=== PATIENT | male | born 1970 | race Caucasian/White ===

== ENCOUNTER 2017-07-12 18:21 | Emergency (ER) | payer BC, SELFPAY ==
--- NOTE | 2017-07-12 20:43 | ER ---
Nurse's Notes [facility] Name: Roger Meza Age: 46 yrs Sex: Male : 1970 Arrival Date: 07/12/2017 Time: 18:25 Bed 13 Private MD: out of town, doctor Diagnosis: Presentation: 07/12 19:03 Presenting complaint: Patient states: that he has been having high bp today. Was fc 160/109. Denies any chest pain or headache. Transition of care: patient was not received from another setting of care. Onset of symptoms was July 12, 2017. Risk Assessment: Do you want to hurt yourself or someone else? Patient reports no desire to harm self or others. Initial Sepsis Screen: Does the patient meet any 2 criteria? No. Patient's initial sepsis screen is negative. Does the patient have a suspected source of infection? No. Patient's initial sepsis screen is negative. Care prior to arrival: None. 19:03 Method Of Arrival: Ambulatory fc 19:03 Acuity: ANDERSON 3 fc 20:41 Note Called pt from [facility]; registration reports pt informed them he was leaving approx aa1 30 mins ago. Triage Assessment: 19:04 General: Appears comfortable, well groomed, Behavior is calm, cooperative, appropriate fc for age. Pain: Denies pain. EENT: No deficits noted. Neuro: Level of Consciousness is awake, alert, obeys commands, Oriented to person, place, time, situation. Cardiovascular: No deficits noted. Respiratory: No deficits noted. GI: No deficits noted. : No deficits noted. Derm: Skin is pink, warm \T\ dry. Musculoskeletal: Circulation, motion, and sensation intact. Capillary refill < 3 seconds, Range of motion: intact in all extremities. Historical: - Allergies: 19:04 NKA; fc - Home Meds: 19:04 None [Active]; fc - PMHx: 19:04 Hypertension; fc - PSHx: 19:04 None; fc - Immunization history:: Last tetanus immunization: unknown. - Social history:: Smoking status: Patient uses tobacco products, smokes one-half pack cigarettes per day. - Ebola Screening: : Patient negative for fever greater than or equal to 101.5 degrees Fahrenheit, and additional compatible Ebola Virus Disease symptoms Patient denies exposure to infectious person Patient denies travel to an Ebola-affected area in the 21 days before illness onset. Vital Signs: 19:04 BP 146 / 98; Pulse 86; Resp 18; Temp 98.1(O); Pulse Ox 96% on R/A; Weight 95.25 kg (R); fc Height 5 ft. 11 in. (180.34 cm) (R); Pain 0/10; 19:04 Body Mass Index 29.29 (95.25 kg, 180.34 cm) ED Course: 18:25 Patient arrived in ED. mr 18:25 None, None is Private Physician. mr 18:25 out of town, doctor is Private Physician. mr 19:04 Triage completed. 19:04 Arm band placed on Patient placed in an exam room, on a stretcher. 20:41 Patient's name was called from ER lobby. No response. Unable to locate patient. Will aa1 disposition as left without being seen by a provider. Administered Medications: No medications were administered Outcome: 20:43 Patient left the ED. aa1 Signatures: Emily Shannon RN RN aa1 Adrienne Dumont Felicia, VITOR RN
[2017-07-12 21:01] VITALS: BP 146/98; TEMP 98.1; O2SAT 96
== END 2017-07-12 20:43 | disposition left against medical advice (07) ==
LOC: ER 18:21
DX: Z53.21 Procedure and treatment not carried out due to patient leaving prior to being seen by health care provider (principal)
CPT/HCPCS: 99281

== ENCOUNTER 2017-11-10 17:55 | Emergency (ER) | payer SELFPAY ==
[2017-11-10] MEDS ORDERED: KETOROLAC 30 MG/ML INJ ONE (18:33)
[2017-11-10] MEDS ORDERED: NA CHLORIDE 0.9% 500 ML ONE (18:33)
[2017-11-10] MEDS ORDERED: MORPHINE 4 MG/ML SYR ONE (18:33)
[2017-11-10] MEDS ORDERED: ONDANSETRON 4 MG/2 ML VIAL ONE (18:33)
--- NOTE | 2017-11-10 19:15 | RAD REPORT ---
EXAM DESCRIPTION: RAD - Shoulder Left 2 View - 11/10/2017 7:01 pm CLINICAL HISTORY: Left shoulder pain FINDINGS: No fracture or dislocation is seen. Moderate osteoarthritis involves the glenohumeral joint consisting joint space narrowing and osteophy yamilka. Mild osteoarthritis involves the acromioclavicular joint
--- NOTE | 2017-11-10 19:18 | RAD REPORT ---
EXAM DESCRIPTION: RAD - C Spine Ap/Lat - 11/10/2017 7:01 pm CLINICAL HISTORY: Neck pain status post injury FINDINGS: The alignment of the cervical spine is satisfactory. No fracture or dislocation is seen. Mild spondylosis involves mid and distal cervical spine
--- NOTE | 2017-11-10 19:42 | ER ---
Nurse's Notes [facility] Name: Roger Meza Age: 47 yrs Sex: Male : 1970 Arrival Date: 11/10/2017 Time: 17:59 Bed 28 Private MD: Diagnosis: Pain in left shoulder;Injury of muscle(s) and tendon(s) of the rotator cuff of shoulder Presentation: 11/10 18:06 Presenting complaint: Patient states: i was trimming trees and suddenly felt pain on my hj R shoulder, and neck; pain is 10/10; reports numbness and tingling; denies trauma to the area;. Transition of care: patient was not received from another setting of care. Onset of symptoms was November 10, 2017. Risk Assessment: Do you want to hurt yourself or someone else? Patient reports no desire to harm self or others. Initial Sepsis Screen: Does the patient meet any 2 criteria? No. Patient's initial sepsis screen is negative. Does the patient have a suspected source of infection? No. Patient's initial sepsis screen is negative. Care prior to arrival: None. 18:06 Method Of Arrival: Ambulatory 18:06 Acuity: ANDERSON 4 hj Triage Assessment: 18:09 General: Appears in no apparent distress. uncomfortable. General: Behavior is calm, hj cooperative, appropriate for age. Pain: Complains of pain in L shoulder and neck. Historical: - Allergies: 18:08 NKA; hj - Home Meds: 18:08 lisinopril 10 mg Oral tab 1 tab once daily [Active]; Fish Oil oral oral daily [Active]; hj - PMHx: 18:08 Hypertension; hj - PSHx: 18:08 None; hj - Immunization history:: Adult Immunizations up to date. - Social history:: Smoking status: Patient uses tobacco products, smokes one pack cigarettes per day. Patient uses alcohol, on a daily basis. - Ebola Screening: : Patient negative for fever greater than or equal to 101.5 degrees Fahrenheit, and additional compatible Ebola Virus Disease symptoms Patient denies exposure to infectious person Patient denies travel to an Ebola-affected area in the 21 days before illness onset. - Family history:: not pertinent. Screenin:09 Abuse screen: Denies threats or abuse. Denies injuries from another. Nutritional hj screening: No deficits noted. Tuberculosis screening: No symptoms or risk factors identified. Fall Risk None identified. Assessment: 18:09 Neuro: Level of Consciousness is awake, alert, obeys commands, Oriented to person, hj place, time, situation, Appropriate for age. 18:21 General: Appears uncomfortable, well groomed, well developed, well nourished, Behavior tl3 is calm, cooperative, appropriate for age. Pain: Complains of pain in anterior aspect of left shoulder and posterior aspect of left shoulder Pain currently is 10 out of 10 on a pain scale. Cardiovascular: Patient's skin is warm and dry. Respiratory: Airway is patent Respiratory effort is even, unlabored, Respiratory pattern is regular, symmetrical. GI: No signs and/or symptoms were reported involving the gastrointestinal system. : No signs and/or symptoms were reported regarding the genitourinary system. EENT: No signs and/or symptoms were reported regarding the EENT system. Derm: No signs and/or symptoms reported regarding the dermatologic system. Musculoskeletal: Reports since was working up on a ladder today using a chain saw when his left shoulder started hurting . Vital Signs: 18:10 BP 148 / 100; Pulse 77; Resp 18; Temp 97.5(TE); Pulse Ox 100% on R/A; Weight 90.72 kg; hj Height 5 ft. 11 in. (180.34 cm); Pain 10/10; 18:21 BP 162 / 102; Pulse 76; Resp 18; Pulse Ox 99% on R/A; tl3 19:40 BP 169 / 106; Pulse 65; Resp 18; Pulse Ox 100% on R/A; mg2 20:03 BP 159 / 106; Pulse 66; Resp 18; Pulse Ox 100% on R/A; mg2 18:10 Body Mass Index 27.89 (90.72 kg, 180.34 cm) ED Course: 17:59 Patient arrived in ED. mr 18:08 Triage completed. hj 18:09 Arm band placed on right wrist. hj 18:09 Patient has correct armband on for positive identification. Bed in low position. Call light in reach. Side rails up X 1. 18:15 Carolyn Whitman RN is Primary Nurse. tl3 18:16 Drake Nielsen MD is Attending Physician. [facility] 18:21 No provider procedures requiring assistance completed. tl3 18:31 Inserted saline lock: 18 gauge in right antecubital area, using aseptic technique. mb4 18:59 Shoulder Left (2 View) XRAY In Process Unspecified. EDMS 19:00 C Spine Ap/Lat XRAY In Process Unspecified. EDMS 19:09 Pulse ox on. NIBP on. mg2 19:09 Sling applied to left arm. mg2 19:41 Reece Orantes MD is Referral Physician. trevor 20:03 IV discontinued, intact, bleeding controlled, No redness/swelling at site. Pressure mg2 dressing applied. Administered Medications: 18:40 Drug: Zofran 4 mg Route: IVP; Infused Over: 2 mins; Site: right antecubital; tl3 20:02 Follow up: Response: No adverse reaction; Marked relief of symptoms mg2 18:42 Drug: NS 0.9% 500 ml Route: IV; Rate: bolus; Site: right antecubital; Delivery: Primary tl3 tubing; 20:03 Follow up: Response: No adverse reaction; IV Status: Completed infusion mg2 18:42 Drug: TORadol 30 mg Route: IVP; Infused Over: 2 mins; Site: right antecubital; tl3 20:02 Follow up: Response: No adverse reaction; Marked relief of symptoms mg2 18:42 Drug: morphine 4 mg Route: IVP; Infused Over: 2 mins; Site: right antecubital; tl3 20:02 Follow up: Response: No adverse reaction; Marked relief of symptoms; Pain is decreased mg2 19:59 Drug: [place] 10 mg-325 mg 1 tabs Route: PO; mg2 20:02 Follow up: Response: No adverse reaction; Medication administered at discharge. mg2 Outcome: 19:41 Discharge ordered by . trevor 20:04 Discharged to home ambulatory, with family. mg2 20:04 Condition: stable 20:04 Discharge instructions given to patient, family, Instructed on discharge instructions, follow up and referral plans. medication usage, Demonstrated understanding of instructions, follow-up care, medications, Prescriptions given X 3. 20:04 Patient left the ED. mg2 Signatures: Dispatcher [employer] EDMS Drake Nielsen MD MD cha Rivera, Mary mr DormanJohn, RN Carolyn Seay RN RN tl3 Mark Gaines RN RN mg2 Africa Perez mb4 Corrections: (The following items were deleted from the chart) 18:12 18:10 Pulse 77bpm; Resp 18bpm; Pulse Ox 100% RA; Temp 97.5F Temporal; 90.72 kg; Height 5 ft. 11 in.; BMI: 27.8; Pain 11/17; hj 18:43 18:40 Zofran 4 mg IVP in left antecubital over 2 mins tl3 tl3 18:43 18:42 morphine 4 mg IVP in left antecubital over 2 mins tl3 tl3 18:43 18:42 TORadol 30 mg IVP in left antecubital over 2 mins tl3 tl3
--- NOTE | 2017-11-10 19:42 | EDPHYS ---
Physician Documentation [facility] Name: Roger Meza Age: 47 yrs Sex: Male : 1970 Arrival Date: 11/10/2017 Time: 17:59 Bed 28 Private MD: ED Physician Drake Nielsen HPI: 11/10 18:22 This 47 yrs old Male presents to ER via Ambulatory with complaints of trevor Shoulder Pain, Neck Pain, <24hrs Old. 18:22 The patient or guardian complains of decreased range of motion, deformity, an injury, trevor pain, tenderness. left shoulder. Context: The problem was sustained at home. Onset: The symptoms/episode began/occurred just prior to arrival. Modifying factors: the symptoms are alleviated by remaining still, The symptoms are aggravated by lifting weight, movement, rotation of arm. Associated signs and symptoms: The patient has no apparent associated signs or symptoms. Severity of symptoms: At their worst the symptoms were moderate, just prior to arrival. The patient has not experienced similar symptoms in the past. Historical: - Allergies: 18:08 NKA; hj - Home Meds: 18:08 lisinopril 10 mg Oral tab 1 tab once daily [Active]; Fish Oil oral oral daily [Active]; hj - PMHx: 18:08 Hypertension; hj - PSHx: 18:08 None; hj - Immunization history:: Adult Immunizations up to date. - Social history:: Smoking status: Patient uses tobacco products, smokes one pack cigarettes per day. Patient uses alcohol, on a daily basis. - Ebola Screening: : Patient negative for fever greater than or equal to 101.5 degrees Fahrenheit, and additional compatible Ebola Virus Disease symptoms Patient denies exposure to infectious person Patient denies travel to an Ebola-affected area in the 21 days before illness onset. - Family history:: not pertinent. ROS: 18:22 Constitutional: Negative for fever, chills, and weight loss, Eyes: Negative for injury, trevor pain, redness, and discharge, ENT: Negative for injury, pain, and discharge, Neck: Negative for injury, pain, and swelling, Cardiovascular: Negative for chest pain, palpitations, and edema, Respiratory: Negative for shortness of breath, cough, wheezing, and pleuritic chest pain, Abdomen/GI: Negative for abdominal pain, nausea, vomiting, diarrhea, and constipation, Back: Negative for injury and pain, : Negative for injury, bleeding, discharge, and swelling, Skin: Negative for injury, rash, and discoloration, Neuro: Negative for headache, weakness, numbness, tingling, and seizure, Psych: Negative for depression, anxiety, suicide ideation, homicidal ideation, and hallucinations, Allergy/Immunology: Negative for hives, rash, and allergies, Endocrine: Negative for neck swelling, polydipsia, polyuria, polyphagia, and marked weight changes, Hematologic/Lymphatic: Negative for swollen nodes, abnormal bleeding, and unusual bruising. 18:22 MS/extremity: Positive for decreased range of motion, pain, of the anterior aspect of left shoulder and posterior aspect of left shoulder. Exam: 18:22 Constitutional: This is a well developed, well nourished patient who is awake, alert, trevor and in no acute distress. Head/Face: Normocephalic, atraumatic. Eyes: Pupils equal round and reactive to light, extra-ocular motions intact. Lids and lashes normal. Conjunctiva and sclera are non-icteric and not injected. Cornea within normal limits. Periorbital areas with no swelling, redness, or edema. ENT: Nares patent. No nasal discharge, no septal abnormalities noted. Tympanic membranes are normal and external auditory canals are clear. Oropharynx with no redness, swelling, or masses, exudates, or evidence of obstruction, uvula midline. Mucous membranes moist. Neck: Trachea midline, no thyromegaly or masses palpated, and no cervical lymphadenopathy. Supple, full range of motion without nuchal rigidity, or vertebral point tenderness. No Meningismus. Chest/axilla: Normal chest wall appearance and motion. Nontender with no deformity. No lesions are appreciated. Cardiovascular: Regular rate and rhythm with a normal S1 and S2. No gallops, murmurs, or rubs. Normal PMI, no JVD. No pulse deficits. Respiratory: Lungs have equal breath sounds bilaterally, clear to auscultation and percussion. No rales, rhonchi or wheezes noted. No increased work of breathing, no retractions or nasal flaring. Abdomen/GI: Soft, non-tender, with normal bowel sounds. No distension or tympany. No guarding or rebound. No evidence of tenderness throughout. Back: No spinal tenderness. No costovertebral tenderness. Full range of motion. Male : Normal genitalia with no discharge or lesions. Skin: Warm, dry with normal turgor. Normal color with no rashes, no lesions, and no evidence of cellulitis. Neuro: Awake and alert, GCS 15, oriented to person, place, time, and situation. Cranial nerves II-XII grossly intact. Motor strength 5/5 in all extremities. Sensory grossly intact. Cerebellar exam normal. Normal gait. Psych: Awake, alert, with orientation to person, place and time. Behavior, mood, and affect are within normal limits. 18:22 Musculoskeletal/extremity: Extremities: decreased ROM, ROM: limited active range of motion due to pain, limited passive range of motion due to pain, Circulation is intact in all extremities. Sensation intact. Compartment Syndrome exam of affected extremity: is normal. DVT Exam: no swelling, negative Homans' sign noted on exam, no appreciated bluish discoloration, no erythema, no increased warmth, pain, tenderness. Vital Signs: 18:10 BP 148 / 100; Pulse 77; Resp 18; Temp 97.5(TE); Pulse Ox 100% on R/A; Weight 90.72 kg; hj Height 5 ft. 11 in. (180.34 cm); Pain 10/10; 18:21 BP 162 / 102; Pulse 76; Resp 18; Pulse Ox 99% on R/A; tl3 19:40 BP 169 / 106; Pulse 65; Resp 18; Pulse Ox 100% on R/A; mg2 20:03 BP 159 / 106; Pulse 66; Resp 18; Pulse Ox 100% on R/A; mg2 18:10 Body Mass Index 27.89 (90.72 kg, 180.34 cm) MDM: 18:16 Patient medically screened. [facility] 18:22 Data reviewed: vital signs, nurses notes, lab test result(s), radiologic studies. [facility] 11/10 18:27 Order name: CBC with Diff [facility] 11/10 18: Order name: Comprehensive Metabolic Panel [facility] 11/10 18:23 Order name: Shoulder Left (2 View) XRAY; Complete Time: 19:40 bd 11/10 18:27 Order name: C Spine Ap/Lat XRAY; Complete Time: 19:40 trevor 11/10 18:33 Order name: Sling; Complete Time: 19:10 [facility] Administered Medications: 18:40 Drug: Zofran 4 mg Route: IVP; Infused Over: 2 mins; Site: right antecubital; tl3 20:02 Follow up: Response: No adverse reaction; Marked relief of symptoms mg2 18:42 Drug: NS 0.9% 500 ml Route: IV; Rate: bolus; Site: right antecubital; Delivery: Primary tl3 tubing; 20:03 Follow up: Response: No adverse reaction; IV Status: Completed infusion mg2 18:42 Drug: TORadol 30 mg Route: IVP; Infused Over: 2 mins; Site: right antecubital; tl3 20:02 Follow up: Response: No adverse reaction; Marked relief of symptoms mg2 18:42 Drug: morphine 4 mg Route: IVP; Infused Over: 2 mins; Site: right antecubital; tl3 20:02 Follow up: Response: No adverse reaction; Marked relief of symptoms; Pain is decreased mg2 19:59 Drug: [place] 10 mg-325 mg 1 tabs Route: PO; mg2 20:02 Follow up: Response: No adverse reaction; Medication administered at discharge. mg2 Disposition: 11/10/17 19:41 Discharged to Home. Impression: Pain in left shoulder, Injury of muscle(s) and tendon(s) of the rotator cuff of shoulder. - Condition is Stable. - Discharge Instructions: Joint Pain, Musculoskeletal Pain, Shoulder Pain, Shoulder Pain, [id number], How to Use a Sling. - Prescriptions for Ibuprofen 600 mg Oral Tablet - take 1 tablet by ORAL route every 8 hours As needed take with food; 21 tablet. Tylenol- Codeine #3 300-30 mg Oral Tablet - take 2 tablet by ORAL route every 6 hours As needed; 30 tablet. Valium 2 mg Oral Tablet - take 1 tablet by ORAL route every 8 hours As needed; 20 tablet. - Medication Reconciliation Form, Thank You Letter, Antibiotic Education, Prescription Opioid Use, Work release form form. - Follow up: Private Physician; When: 2 - 3 days; Reason: Recheck today's complaints, Continuance of care, Re-evaluation by your physician. Follow up: Dr. Reece Orantes; When: 2 - 3 days; Reason: Recheck today's complaints, Re-evaluation by your physician. - Problem is new. - Symptoms have improved. Signatures: Dispatcher [employer] EDDrake Cota MD MD cha Joaquin, Henry, RN RN hj Caroyln Whitman RN RN tl3 Mark Gaines, RN RN mg2 Corrections: (The following items were deleted from the chart) 20:04 19:41 11/10/2017 19:41 Discharged to Home. Impression: Pain in left shoulder; Injury of mg2 muscle(s) and tendon(s) of the rotator cuff of shoulder. Condition is Stable. Discharge Instructions: Joint Pain, Musculoskeletal Pain, Shoulder Pain, Shoulder Pain, [id number], How to Use a Sling. Prescriptions for Ibuprofen 600 mg Oral Tablet - take 1 tablet by ORAL route every 8 hours As needed take with food; 21 tablet, Tylenol-Codeine #3 300-30 mg Oral Tablet - take 2 tablet by ORAL route every 6 hours As needed; 30 tablet, Valium 2 mg Oral Tablet - take 1 tablet by ORAL route every 8 hours As needed; 20 tablet. and Forms are Medication Reconciliation Form, Thank You Letter, Antibiotic Education, Prescription Opioid Use. Follow up: Private Physician; When: 2 - 3 days; Reason: Recheck today's complaints, Continuance of care, Re-evaluation by your physician. Follow up: Dr. Reece Orantes; When: 2 - 3 days; Reason: Recheck today's complaints, Re-evaluation by your physician. Problem is new. Symptoms have improved. trevor
[2017-11-10] MEDS ORDERED: HYDROCODONE/APAP 10/325 TAB ONE (19:52)
[2017-11-10 19:58] LABS: Absolute Lymphocytes (CBC) 2.1 K/uL (0.7-4.9); Absolute Monocytes 0.8 K/uL (0.1-1.3); Absolute Neutrophil 5.6 K/uL (1.8-8.0); Basophils % 0.9 % (0-1.3); Eosinophils % 2.2 % (0-4.4); Hematocrit 44.9 % (39.6-49.0); Lymphocytes % 23.4 % (15.3-44.8); MCH 32.7 pg (27.0-35.0); MCV 96.3 fL (80-100); MPV 8.2 fL (7.6-11.3); Monocytes % 9.2 % (3.3-12.3); RBC Red Blood Cell Count 4.67 M/uL (4.33-5.43)
[2017-11-10 20:14] LABS: ALT/SGPT 27 U/L (12-78); AST/SGOT 19 U/L (15-37); Albumin 3.2 g/dL (3.4-5.0); Alkaline Phosphatase 81 U/L (45-117); BUN Blood Urea Nitrogen 5 mg/dL (7-18); Bicarbonate 24 mmol/L (21-32); Bilirubin Total 0.3 mg/dL (0.2-1.0); Glucose Level 82 mg/dL (74-106); Potassium 4.1 mmol/L (3.5-5.1); Sodium Level 140 mmol/L (136-145)
[2017-11-10 20:15] VITALS: TEMP 97.5
[2017-11-10 20:18] VITALS: O2SAT 100
[2017-11-10 20:19] VITALS: BP 159/106
== END 2017-11-10 20:04 | disposition home or self-care (01) ==
LOC: ER 17:55
DX: S46.002A Unspecified injury of muscle(s) and tendon(s) of the rotator cuff of left shoulder, initial encounter (principal); X58.XXXA Exposure to other specified factors, initial encounter; Y93.89 Activity, other specified; Y92.009 Unspecified place in unspecified non-institutional (private) residence as the place of occurrence of the external cause; I10 Essential (primary) hypertension; F17.210 Nicotine dependence, cigarettes, uncomplicated
CPT/HCPCS: 36415; 72040; 80053; 85025; 96361; 96374; 96375; 99284; J2405

== ENCOUNTER 2020-05-05 17:27 | Emergency (ER) | payer SELFPAY ==
[2020-05-05] MEDS ORDERED: MORPHINE 4 MG/ML SYR ONE (19:46)
[2020-05-05] MEDS ORDERED: ONDANSETRON 4 MG/2 ML VIAL ONE (19:46)
[2020-05-05 19:48] LABS: Absolute Lymphocytes (CBC) 1.7 K/uL (0.7-4.9); Basophils % 1.1 % (0-1.3); Lymphocytes % 23.2 % (15.3-44.8); MPV 8.8 fL (7.6-11.3); RBC Red Blood Cell Count 4.74 M/uL (4.33-5.43)
[2020-05-05 20:07] LABS: ALT/SGPT 56 U/L (12-78); AST/SGOT 46 U/L (15-37); Albumin 3.4 g/dL (3.4-5.0); Alkaline Phosphatase 109 U/L (45-117); BUN Blood Urea Nitrogen 7 mg/dL (7-18); Bicarbonate 23 mmol/L (21-32); Bilirubin Direct 0.2 mg/dL (0-0.2); Bilirubin Total 0.5 mg/dL (0.2-1.0); Glucose Level 81 mg/dL (74-106); Magnesium 2.3 mg/dL (1.8-2.4); NT PRO-BNP 90 pg/mL (<125); Potassium 4.1 mmol/L (3.5-5.1); Protein, Total 7.4 g/dL (6.4-8.2); Sodium Level 137 mmol/L (136-145); Troponin (Emerg Dept Use Only) < 0.02 ng/mL (0.0-0.045)
[2020-05-05 20:08] LABS: Protime INR 0.9
--- NOTE | 2020-05-05 20:58 | RAD REPORT ---
EXAM DESCRIPTION: Josemanuel Single View05/05/2020 7:24 pm CLINICAL HISTORY: Chest pain COMPARISON: 2011 FINDINGS: Small pulmonary calcified granulomas. The lungs appear clear of acute infiltrate. The heart is normal size IMPRESSION: No acute abnormalities displayed
--- NOTE | 2020-05-05 21:11 | RAD REPORT ---
EXAM DESCRIPTION: CT - Abdomen Pelvis W Contrast - 05/05/2020 8:34 pm CLINICAL HISTORY: Abdominal pain COMPARISON: none. TECHNIQUE: Computed axial tomography of the abdomen pelvis was obtained. 100 cc Isovue-300 was admin istered intravenously. Oral contrast was not requested which limits evaluation of bowel. All CT scans are performed using dose optimization technique as appropriate and may include automated exposure control or mA/KV adjustment according to patient size. FINDINGS: The liver, spleen, pancreas, adrenal and kidneys appear unremarkable. There is no evidence of diverticulitis. Normal appendix The wall of the bladder appears thickened. Prostate gland is probably borderline enlarged Calcified granuloma right lower lobe IMPRESSION: The wall of the bladder appears thickened. This may be secondary to incomplete distentio n. Cystitis can also result in this appearance.
[2020-05-05] MEDS ORDERED: cloNIDine HCL 0.1 MG TAB ONE (21:15)
--- NOTE | 2020-05-05 22:19 | EDPHYS ---
Physician Documentation [facility] Name: Roger Meza Age: 49 yrs Sex: Male : 1970 Arrival Date: 05/05/2020 Time: 17:32 Bed 19 Private MD: ED Physician Tano Richardson HPI: 05/06 00:37 This 49 yrs old Male presents to ER via Ambulatory with complaints of Pain kb All Over. 00:37 The patient presents with abdominal pain that is diffuse. Onset: The symptoms/episode kb began/occurred 2 month(s) ago. The symptoms do not radiate. Associated signs and symptoms: none. The symptoms are described as constant. Modifying factors: The symptoms are alleviated by nothing, the symptoms are aggravated by nothing. Severity of pain: At its worst the pain was moderate in the emergency department the pain is unchanged. The patient has not experienced similar symptoms in the past. The patient has not recently seen a physician. Pt reports he has been having pain to chest and abd for 2 months, worse in abdomen. States he just doesn't feel well and is concerned that he has cancer because his father had prostate cancer when he was in his 40s. Reports he has not had this checked before. Has an appt on Wednesday with his dr. States he has hypertension and takes lisinopril. States his blood pressure normally gets high when he's at the dr's office, but goes back to normal when he leaves. Pt asymptomatic of blood pressure. Historical: - Allergies: 05/05 17:40 NKA; ll1 - PMHx: 17:40 Hypertension; ll1 - PSHx: 17:40 None; ll1 - Immunization history:: Flu vaccine is not up to date. - Social history:: Smoking status: Patient reports the use of cigarette tobacco products, smokes one pack cigarettes per day. ROS: 19:33 Respiratory: Negative for shortness of breath, cough, wheezing, and pleuritic chest kb pain, MS/Extremity: Negative for injury and deformity, Skin: Negative for injury, rash, and discoloration, Neuro: Negative for headache, weakness, numbness, tingling, and seizure. 19:33 Constitutional: Positive for malaise, weight loss. 19:33 Cardiovascular: Positive for chest pain. 19:33 Abdomen/GI: Positive for abdominal pain, rectal discharge. Exam: 19:09 Constitutional: This is a well developed, well nourished patient who is awake, alert, kb and in no acute distress. Head/Face: Normocephalic, atraumatic. Respiratory: Respirations even and unlabored. No increased work of breathing, no retractions or nasal flaring. Skin: Warm, dry with normal turgor. Normal color. MS/ Extremity: Pulses equal, no cyanosis. Neurovascular intact. Full, normal range of motion. Neuro: Awake and alert, GCS 15, oriented to person, place, time, and situation. Moves all extremities. Normal gait. 19:09 ECG was reviewed by the Attending Physician. 19:10 Abdomen/GI: Inspection: abdomen appears normal, Palpation: soft, in all quadrants, kb moderate abdominal tenderness, in the left upper quadrant and left lower quadrant. Vital Signs: 17:37 BP 194 / 130; Pulse 74; Resp 17; Pulse Ox 99% ; Weight 73.48 kg; Height 5 ft. 10 in. ll1 (177.80 cm); Pain 10/10; 18:54 BP 197 / 126; Pulse 79; Resp 18; Pulse Ox 99% ; Pain 8/10; bw 19:30 BP 177 / 105; Pulse 62; Resp 17; Pulse Ox 96% on R/A; rv 20:03 BP 176 / 106; Pulse 63; Resp 14; Pulse Ox 96% ; rv 20:41 BP 194 / 120; Pulse 67; Resp 16; Pulse Ox 98% on R/A; rv 20:50 BP 183 / 122; Pulse 73; Resp 16; Pulse Ox 98% on R/A; rv 21:58 BP 189 / 117; Pulse 60; Resp 15; Pulse Ox 98% ; rv 17:37 Body Mass Index 23.24 (73.48 kg, 177.80 cm) ll1 MDM: 18:22 Patient medically screened. kb 19:09 Data reviewed: vital signs, nurses notes. Data interpreted: Pulse oximetry: on room air kb is 99 %. Interpretation: normal. 22:03 Counseling: I had a detailed discussion with the patient and/or guardian regarding: the kb historical points, exam findings, and any diagnostic results supporting the discharge/admit diagnosis, lab results, radiology results, the need for outpatient follow up, a family practitioner, to return to the emergency department if symptoms worsen or persist or if there are any questions or concerns that arise at home. 05/06 00:40 ED course: Educated to keep bp log and follow up with pcp for possible adjustment of kb medication for management. 05/05 18:28 Order name: Basic Metabolic Panel kb 05/05 18:28 Order name: CBC with Diff; Complete Time: 20:09 kb 05/05 18:28 Order name: LFT's; Complete Time: 20:09 kb 05/05 18:28 Order name: Magnesium; Complete Time: 20:09 kb 05/05 18:28 Order name: NT PRO-BNP; Complete Time: 20:09 kb 05/05 18:28 Order name: PT-INR; Complete Time: 20:09 kb 05/05 18:28 Order name: Troponin (emerg Dept Use Only); Complete Time: 20:09 kb 05/05 18:28 Order name: XRAY Chest (1 view); Complete Time: 21:00 kb 05/05 18:28 Order name: CT Abd/Pelvis - IV Contrast Only; Complete Time: 21:12 kb 05/05 18:28 Order name: Basic Metabolic Panel; Complete Time: 20:09 EDMS 05/05 22:05 Order name: Urine Dipstick--Ancillary (enter results) mw2 05/05 18:28 Order name: EKG; Complete Time: 18:29 kb 05/05 18:28 Order name: Cardiac monitoring; Complete Time: 19:50 kb 05/05 18:28 Order name: EKG - Nurse/Tech; Complete Time: 19:24 kb 05/05 18:28 Order name: IV Saline Lock; Complete Time: 19:24 kb 05/05 18:28 Order name: Labs collected and sent; Complete Time: 19:24 kb 05/05 18:28 Order name: O2 Per Protocol; Complete Time: 19:24 kb 05/05 18:28 Order name: O2 Sat Monitoring; Complete Time: 19:24 kb 05/05 21:13 Order name: Urine Dipstick-Ancillary (obtain specimen); Complete Time: 21:59 kb EC/28 19:09 Rate is 67 beats/min. Rhythm is regular. QRS [place] is Normal. VA interval is normal at kb 146 msec. QRS interval is normal at 74 msec. QT interval is normal at 410 msec. Administered Medications: 19:50 Drug: morphine 4 mg Route: IVP; Site: right forearm; rv 21:59 Follow up: Response: No adverse reaction; Blood pressure is unchanged rv 22:00 Follow up: Response: Pain is decreased; RASS: Alert and Calm (0) rv 19:51 Drug: Zofran (Ondansetron) 4 mg Route: IVP; Site: right forearm; rv 22:00 Follow up: Response: No adverse reaction rv 20:59 Drug: cloNIDine 0.1 mg Route: PO; rv 22:00 Follow up: Response: No adverse reaction; Blood pressure is unchanged rv Disposition: 05/05/20 22:18 Discharged to Home. Impression: Generalized abdominal pain. - Condition is Stable. - Discharge Instructions: Abdominal Pain, Adult, [id number]. - Medication Reconciliation Form, Thank You Letter, Antibiotic Education, Prescription Opioid Use form. - Follow up: Emergency Department; When: As needed; Reason: Worsening of condition. Follow up: Private Physician; When: 2 - 3 days; Reason: Recheck today's complaints, Continuance of care, Re-evaluation by your physician. Addendum: 05/07/2020 23:05 Co-signature as Attending Physician, Tano Richardson MD. r n Signatures: Dispatcher [employer] EDMS Chelsea Conrad, HOME ECONOMICS TEACHER-C HOME ECONOMICS TEACHER-Ckb Tano Richardson MD MD rn Vicente, Ronaldo, RN RN Jenny Urbina, RN RN vg1 Santiago Panchal RN RN ll1 Corrections: (The following items were deleted from the chart) 05/05 19:34 19:33 Abdomen/GI: Positive for abdominal pain, kb 22:25 22:18 05/05/2020 22:18 Discharged to Home. Impression: Generalized abdominal pain. vg1 Condition is Stable. Forms are Medication Reconciliation Form, Thank You Letter, Antibiotic Education, Prescription Opioid Use. Follow up: Emergency Department; When: As needed; Reason: Worsening of condition. Follow up: Private Physician; When: 2 - 3 days; Reason: Recheck today's complaints, Continuance of care, Re-evaluation by your physician. kb
--- NOTE | 2020-05-05 22:19 | ER ---
Nurse's Notes [facility] Name: Roger Meza Age: 49 yrs Sex: Male : 1970 Arrival Date: 05/05/2020 Time: 17:32 Bed 19 Private MD: Diagnosis: Generalized abdominal pain Presentation: 05/05 17:37 Chief complaint: Patient states: Entire body pain shoulders down, real bad for 2 weeks. ll1 Reports rectal "secretions" for 4 weeks. No N/V/D. + hot flashes at night. No fever. 40+ pound weight loss in 6 weeks. Coronavirus screen: Client denies travel out of the [place] in the last 14 days. difficulty breathing, fatigue, headache, Client presents with at least one sign or symptom that may indicate coronavirus-19. Standard/surgical mask placed on the client. Ebola Screen: Patient denies travel to an Ebola-affected area in the 21 days before illness onset. Initial Sepsis Screen: Does the patient meet any 2 criteria? No. Patient's initial sepsis screen is negative. Does the patient have a suspected source of infection? Yes: Bone or joint infection. Risk Assessment: Do you want to hurt yourself or someone else? Patient reports no desire to harm self or others. Onset of symptoms was April 07, 2020. 17:37 Method Of Arrival: Ambulatory ll1 17:37 Acuity: ANDERSON 2 ll1 Historical: - Allergies: 17:40 NKA; ll1 - PMHx: 17:40 Hypertension; ll1 - PSHx: 17:40 None; ll1 - Immunization history:: Flu vaccine is not up to date. - Social history:: Smoking status: Patient reports the use of cigarette tobacco products, smokes one pack cigarettes per day. Screenin:54 Abuse screen: Denies threats or abuse. Nutritional screening: No deficits noted. bw Tuberculosis screening: No symptoms or risk factors identified. Fall Risk None identified. Assessment: 18:54 Pain: Complains of pain in Chest to toes. Abdominal tenderness "all over from neck bw down" pt states Pain began 2-3 days ago. Neuro: No deficits noted. Cardiovascular: Reports chest pain. Respiratory: No deficits noted. GI: Reports lower abdominal pain, upper abdominal pain. : No deficits noted. EENT: No deficits noted. Derm: No deficits noted. Musculoskeletal: No deficits noted. 20:02 General: Appears uncomfortable, Behavior is calm, cooperative. Pain: Complains of pain rv in CHEST, ABDOMEN. Neuro: Level of Consciousness is awake, alert, obeys commands, Oriented to person, place, time, situation. Cardiovascular: Patient's skin is warm and dry. Rhythm is sinus rhythm. Respiratory: Airway is patent Respiratory effort is even, unlabored. GI: Bowel sounds present X 4 quads. Reports lower abdominal pain, upper abdominal pain. Derm: Skin is intact. 21:04 Reassessment: BLOOD PRESSURE IS ELEVATED, CHEST PAIN IS DECREASING FROM MORPHINE, rv REFERRED TO [facility], RECEIVED NEW ORDERS. 22:16 Reassessment: EUGENIO JHAVERI TALKED TO THE PATIENT REGARDING TEST RESULTS AND PLAN OF CARE. rv PROVIDER AWARE OF VITAL SIGNS, PATIENT IS ASYMPTOMATIC AT THE MOMENT. Vital Signs: 17:37 BP 194 / 130; Pulse 74; Resp 17; Pulse Ox 99% ; Weight 73.48 kg; Height 5 ft. 10 in. ll1 (177.80 cm); Pain 10/10; 18:54 BP 197 / 126; Pulse 79; Resp 18; Pulse Ox 99% ; Pain 8/10; bw 19:30 BP 177 / 105; Pulse 62; Resp 17; Pulse Ox 96% on R/A; rv 20:03 BP 176 / 106; Pulse 63; Resp 14; Pulse Ox 96% ; rv 20:41 BP 194 / 120; Pulse 67; Resp 16; Pulse Ox 98% on R/A; rv 20:50 BP 183 / 122; Pulse 73; Resp 16; Pulse Ox 98% on R/A; rv 21:58 BP 189 / 117; Pulse 60; Resp 15; Pulse Ox 98% ; rv 17:37 Body Mass Index 23.24 (73.48 kg, 177.80 cm) ll1 ED Course: 17:32 Patient arrived in ED. mr 17:40 Triage completed. ll1 17:41 Arm band placed on. ll1 18:22 Eugenio Conrad FNP-C is [facility]. kb 18:22 Tano Richardson MD is Attending Physician. kb 18:54 Lizabeth Gregory, VITOR is Primary Nurse. bw 18:54 Bed in low position. Call light in reach. Side rails up X 1. site foreman on. Pulse bw ox on. NIBP on. 18:54 No provider procedures requiring assistance completed. Patient maintains SpO2 bw saturation greater than 95% on room air. 19:24 XRAY Chest (1 view) In Process Unspecified. EDMS 20:34 CT Abd/Pelvis - IV Contrast Only In Process Unspecified. EDMS 22:25 Patient did not have IV access during this emergency room visit. vg1 Administered Medications: 19:50 Drug: morphine 4 mg Route: IVP; Site: right forearm; rv 21:59 Follow up: Response: No adverse reaction; Blood pressure is unchanged rv 22:00 Follow up: Response: Pain is decreased; RASS: Alert and Calm (0) rv 19:51 Drug: Zofran (Ondansetron) 4 mg Route: IVP; Site: right forearm; rv 22:00 Follow up: Response: No adverse reaction rv 20:59 Drug: cloNIDine 0.1 mg Route: PO; rv 22:00 Follow up: Response: No adverse reaction; Blood pressure is unchanged rv Outcome: 22:18 Discharge ordered by . kb 22:25 Discharged to home ambulatory. vg1 22:25 Condition: stable 22:25 Discharge instructions given to patient, Instructed on discharge instructions, follow up and referral plans. Demonstrated understanding of instructions, follow-up care. 22:25 Patient left the ED. vg1 Signatures: Dispatcher [employer] EDMS Eugenio Conrad, SLITTER CREASER SLOTTER HELPER-C SLITTER CREASER SLOTTER HELPER-Emory BronsonaCasandra mr Dos SantosRafita, RN RN Jenny Urbina RN RN vg1 Santiago Panchal RN RN Lizabeth Mayer RN RN
[2020-05-05 22:23] LABS: Urine Blood NEGATIVE (Negative); Urine Glucose NEGATIVE (Negative); Urine Protein NEGATIVE (NEG); Urine Specific Gravity 1.015 (1.005-1.030)
[2020-05-05 22:38] VITALS: O2SAT 98
[2020-05-05 22:40] VITALS: BP 189/117
== END 2020-05-05 22:25 | disposition home or self-care (01) ==
LOC: ER 17:27
DX: R10.84 Generalized abdominal pain (principal); I10 Essential (primary) hypertension; F17.210 Nicotine dependence, cigarettes, uncomplicated
CPT/HCPCS: 36415; 71045; 74177; 80048; 80076; 81003; 83735; 83880; 84484; 85025; 85610; 93005; 96374; 96375; 99285; J2405; Q9967

== ENCOUNTER 2022-08-22 13:50 | Emergency (ER) | payer BC, SELFPAY ==
--- OUTSIDE RECORDS SUMMARY | 2022-08-22 13:56 | XMS REPORT | Continuity of Care Document ---
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 Social History Smoking Status Start Date Stop Date Source Current Every Day Smoker [place] [facility] Medications Ordered Filled Start Stop Current Ordering Indication Dosage Frequency Signature Comments Components Source Medication Medication Date Date Medication? Clinician (SIG) Name Name dicyclomine dicyclomine No 1 QID dicyclomin [place] 20 mg 20 mg e 20 mg da tablet Take tablet Take tablet [facility] 1 tablet 4 1 tablet 4 Take 1 a l times a day times a day tablet 4 Health by oral by oral times a Outrea c route as route as day by h needed. needed. oral route Pro gram as needed. hydrocortis hydrocortis No hydrocorti [place] one 2.5 % one 2.5 % sone 2.5 % da topical topical topical Episco p cream with cream with cream with al perineal perineal perineal Hea lth applicator applicator applicator Outreac APPLY A APPLY A APPLY A h THIN LAYER THIN LAYER THIN LAYER Program TO THE TO THE TO THE AFFECTED AFFECTED AFFECTED AREA(S) 2 AREA(S) 2 AREA(S) 2 TIMES DAILY TIMES DAILY TIMES DAILY sulfasalazi sulfasalazi No sulfasalaz [place] [facility] [facility] Vital Signs Vital Name Observation Time Observation Value Comments Source BP Diastolic 2020-05-30 00:00:00 116 mm[Hg] [place] [facility] Height 2020-05-30 00:00:00 70 [in_i] [place] [facility] BMI (Body Mass 2020-05-30 00:00:00 24.4 kg/m2 [place] occupational therapist [facility] Index) [facility] BP Systolic 2020-05-30 00:00:00 201 mm[Hg] [place] [facility] Body Weight 2020-05-30 00:00:00 170.2 [lb_av] [place] [facility] BP Diastolic 2020-05-16 00:00:00 110 mm[Hg] [place] [facility] Height 2020-05-16 00:00:00 70 [in_i] [place] [facility] BMI (Body Mass 2020-05-16 00:00:00 24.7 kg/m2 [place] [facility] Index) [facility] BP Systolic 2020-05-16 00:00:00 196 mm[Hg] [place] [facility] Body Weight 2020-05-16 00:00:00 172.4 [lb_av] [place] [facility] Procedures Procedure Date / Time Performing Clinician Source Performed Colonoscopy 2020-05-23 00:00:00 [place] [facility] Esophagogastroduodenoscopy 2020-05-23 00:00:00 [place] [facility] Procedure on Finger [place] [facility] Encounters Start End Encounter Admission Attending Care Care Encounter Source Date/Time Date/Time Type Type Clinicians Facility Department ID 2020-08-15 2020-08-15 Outpatient [facility] 114 [id number] [place] 01:45:00 01:45:00 [place] [id number] [facility] 2020-07-12 2020-07-12 Outpatient [facility] 114 226- [place] 01:02:00 01:02:00 bin [id number] [facility] 2020-06-29 2020-06-29 Outpatient [facility] 114 [place] 01:09:00 01:09:00 bin [id number] [facility] 2020-06-07 2020-06-07 Outpatient [facility] 114 [place] 01:03:00 01:03:00 bin [id number] [facility] 2020-05-31 2020-05-31 Outpatient [facility] 114 [place] 04:54:00 04:54:00 bin [id number] [facility] 2020-05-30 2020-05-30 Outpatient [facility] 114 [place] 03:17:00 03:17:00 bin [id number] [facility] 2020-05-30 2020-05-30 [place] [facility] [place] - [id number] [place] 00:00:00 00:00:00 Aleks Agrawal MD: [id number] [facility] [address] HOP - [facility] [address] [place] [facility] [place] [facility] [id number] , Ph. 2020-05-27 2020-05-27 Outpatient [facility] 114 - [place] 11:25:00 11:25:00 bin [id number] [facility] 2020-05-23 2020-05-23 Outpatient [facility] 114 [place] 03:10:00 03:10:00 bin [id number] [facility] 2020-05-16 2020-05-16 Outpatient [facility] 114 [place] 04:07:00 04:07:00 bin [id number] [facility] 2020-05-16 2020-05-16 Ed [place] [facility] [place] - [id number] [place] 00:00:00 00:00:00 Aleks Agrawal MD: [id number] [facility] [place] [place] [address] HOP - [facility] [address] [place] Program [id number] , Ph. 2020-05-15 2020-05-[address] Ferguson[facility]Ro [facility] 114 - [place] 09:11:00 09:11:00 bin [id number] [facility] 2020-05-14 2020-05-14 [address] Ferguson_Ro [facility] 114 - [place] 02:13:00 02:13:00 bin [id number] [facility] 2020-05-13 2020-05-13 [address] Ferguson_Ro [facility] 114 226- [place] 10:50:00 10:50:00 bin [id number] [facility] 2020-05-07 2020-05-[address] Ferguson_Ro [facility] 114 226- [place] 03:09:00 03:09:00 bin [id number] [facility] Results This patient has no known results.
[2022-08-22] MEDS ORDERED: NA CHLORIDE 0.9% 1,000 ML ONE (14:23)
[2022-08-22 14:42] LABS: Absolute Lymphocytes (CBC) 0.7 K/uL (0.7-4.9); Hematocrit 42.2 % (39.6-49.0); MPV 7.6 fL (7.6-11.3); Protime INR 1.04; RBC Red Blood Cell Count 4.35 M/uL (4.33-5.43)
--- NOTE | 2022-08-22 14:48 | RAD REPORT ---
EXAM DESCRIPTION: RAD - Chest Single View - 08/22/2022 2:37 pm CLINICAL HISTORY: COUGH Chest pain. COMPARISON: Chest Single View dated 05/05/2020; CHEST SINGLE VIEW dated 12/13/2011 FINDINGS: Portable technique limits examination quality. The lungs are grossly clear. The heart is normal in size. No displaced fractures. IMPRESSION: No acute intrathoracic process suspected.
[2022-08-22 14:56] LABS: ALT/SGPT 18 U/L (16-61); AST/SGOT 18 U/L (15-37); Albumin 3.1 g/dL (3.4-5.0); Alkaline Phosphatase 75 U/L (45-117); BUN Blood Urea Nitrogen 11 mg/dL (7-18); Bicarbonate 26 mEq/L (21-32); Bilirubin Total 0.3 mg/dL (0.2-1.0); Creatine Phosphokinase 115 U/L (39-308); Glomerular Filtration Rate 99 ml/min (=/>90); Glucose Level 128 mg/dL (74-106); Lipase 30 U/L (13-75); Magnesium 2.3 mg/dL (1.6-2.4); NT PRO-BNP 177 pg/mL (<125); Potassium 3.5 mEq/L (3.5-5.1); Protein, Total 6.7 g/dL (6.4-8.2); Sodium Level 134 mEq/L (136-145); Troponin High Sensitivity 7.4 pg/mL (<58.9)
[2022-08-22 14:58] LABS: Bilirubin Direct < 0.1 mg/dL (0-0.2); Bilirubin Indirect, Calculated ND mg/dL (0.2-0.8)
--- NOTE | 2022-08-22 15:51 | RAD REPORT ---
EXAM DESCRIPTION: CTAbdomen Pelvis W Contrast - 08/22/2022 3:22 pm CLINICAL HISTORY: Abdominal pain. ABD PAIN COMPARISON: Abdomen Pelvis W Contrast dated 05/05/2020 TECHNIQUE: Biphasic CT imaging of the abdomen and pelvis was performed with 100 ml non-ionic IV cont rast. All CT scans are performed using dose optimization technique as appropriate and may include automated exposure control or mA/KV adjustment according to patient size. FINDINGS: The lung bases are clear. The liver, spleen, pancreas, adrenal glands and kidneys are within normal limits. No bowel obstruction, free air, free fluid or abscess. There is significant stool retention throughou t the colon. Large fat containing right inguinal hernia containing small intestine without evidence o f strangulation currently. Normal appendix. No evidence of significant lymphadenopathy. No suspicious bony findings. IMPRESSION: Large right inguinal hernia containing small bowel without evidence of strangulation. Prominent fecal retention throughout the colon.
[2022-08-22 16:31] LABS: Specific Gravity 1.011 (1.005-1.030); Urine Bilirubin NEGATIVE (Negative); Urine Blood Negative (Negative); Urine Clarity Clear (Clear); Urine Color Light-Yellow (Yellow); Urine Glucose NEGATIVE (Negative); Urine Protein NEGATIVE (Negative); Urine Urobilinogen Normal (Normal)
--- NOTE | 2022-08-22 16:32 | ER ---
Nurse's Notes [facility] Name: Roger Meza Age: 51 yrs Sex: Male : 1970 Arrival Date: 08/22/2022 Time: 01:50 Bed 7 Private MD: Diagnosis: Epigastric abdominal tenderness;Tobacco abuse counseling;Tobacco use;Constipation;Unilateral inguinal hernia, without obstruction or gangrene-right direct;Syncope Near Presentation: 08/22 14:14 Chief complaint: EMS states: Toned out to [facility] [place] for syncopal episode, pt was diaphoretic jl7 on scene, EKG NSR, bgl 111, BP 160/90. Pt reports LLQ abd pain x 3 weeks, RLQ hernia x years, reports pain to LLQ was severe just prior to syncopal episode. Coronavirus screen: At this time, the client does not indicate any symptoms associated with coronavirus-19. Ebola Screen: No symptoms or risks identified at this time. Initial Sepsis Screen: Does the patient meet any 2 criteria? No. Patient's initial sepsis screen is negative. Does the patient have a suspected source of infection? No. Patient's initial sepsis screen is negative. Risk Assessment: Do you want to hurt yourself or someone else? Patient reports no desire to harm self or others. Onset of symptoms was August 22, 2022. Care prior to arrival: Medication(s) given: Normal saline infusion, 500 mL, IV initiated. 18 GA, in the right antecubital area, Glucose check: 111. 14:14 Method Of Arrival: EMS: [facility] 7 14:14 Acuity: ANDERSON 2 jl7 Triage Assessment: 14:17 General: Appears in no apparent distress. uncomfortable, Behavior is calm, cooperative, jl7 appropriate for age. Pain: Complains of pain in right lower quadrant and left lower quadrant Pain currently is 10 out of 10 on a pain scale. Neuro: Level of Consciousness is awake, alert, obeys commands, Oriented to person, place, time, situation. Cardiovascular: Patient's skin is warm and dry. Respiratory: Airway is patent Respiratory effort is even, unlabored, Respiratory pattern is regular, symmetrical. GI: Abdomen is non-distended, Reports lower abdominal pain, Patient currently denies diarrhea, nausea, vomiting. Derm: Skin is pink, warm \\T\\ dry. Historical: - Allergies: 14:17 NKA; jl7 - Home Meds: 14:17 lisinopril 10 mg Oral tab 1 tab once daily [Active]; jl7 - PMHx: 14:17 Hypertension; jl7 - Immunization history:: Adult Immunizations unknown. - Social history:: Smoking status: Patient reports the use of cigarette tobacco products, smokes 1.5 packs per day, Patient uses alcohol, on a daily basis. claims drinking about a 6 pack/day. - Family history:: not pertinent. Screenin:15 [facility] ED Fall Risk Assessment (Adult) History of falling in the last 3 months, vg1 including since admission No falls in past 3 months (0 pts). Abuse screen: Denies threats or abuse. Denies injuries from another. Nutritional screening: No deficits noted. Tuberculosis screening: No symptoms or risk factors identified. Assessment: 14:15 General: Appears in no apparent distress. uncomfortable, Behavior is calm, cooperative. vg1 Pain: Complains of pain in left upper quadrant and left lower quadrant Pain currently is 10 out of 10 on a pain scale. Pain began pt stated "its been for a while and it comes an goes". Neuro: Level of Consciousness is awake, alert, obeys commands, Oriented to person, place, time, situation, Denies dizziness. Cardiovascular: Patient's skin is warm and dry. Respiratory: Airway is patent Respiratory effort is even, unlabored. GI: Abdomen is round non-distended, Reports lower abdominal pain, upper abdominal pain, hx of hernia. : No signs and/or symptoms were reported regarding the genitourinary system. Derm: Skin is clammy. Musculoskeletal: Circulation, motion, and sensation intact. 16:06 Reassessment: Patient appears in no apparent distress at this time. No changes from vg1 previously documented assessment. Patient and/or family updated on plan of care and expected duration. Pain level reassessed. Patient is alert, oriented x 3, equal unlabored respirations, skin warm/dry/pink. Provider at bedside. Vital Signs: 14:14 BP 162 / 91; Pulse 66; Resp 15; Temp 97.7; Pulse Ox 99% ; Weight 77.11 kg; Height 5 ft. jl7 11 in. ; Pain 10/10; 14:15 BP 162 / 90; Pulse 70; Resp 16; Pulse Ox 99% on R/A; vg1 15:30 BP 155 / 78; Pulse 68; Resp 18; Temp 97.2; Pulse Ox 98% on R/A; ph 15:30 BP 141 / 89; Pulse 71; Resp 18; Temp 97.9; Pulse Ox 99% on R/A; ph 14:14 Body Mass Index 23.71 (77.11 kg, 180.34 cm) jl7 14:14 Pain Scale: Adult jl7 [place] Coma Score: 16:18 Eye Response: spontaneous(4). Motor Response: obeys commands(6). Verbal Response: trevor oriented(5). Total: 15. NIH Stroke Scale Scores: 16:18 NIHSS Score: 0 trevor ED Course: 14:03 Patient arrived in ED. ph 14:03 Drake Nielsen MD is Attending Physician. trevor 14:11 Jenny Vasquez, VITOR is Primary Nurse. vg1 14:15 Patient has correct armband on for positive identification. Placed in gown. Bed in low vg1 position. Call light in reach. Side rails up X2. Adult w/ patient. Client placed on continuous cardiac and pulse oximetry monitoring. NIBP monitoring applied. 14:17 Triage completed. jl7 14:17 Arm band placed on right wrist. jl7 14:28 Initial lab(s) drawn, by me, sent to lab. Maintain EMS IV. Dressing intact. Good blood vg1 return noted. Site clean \\T\\ dry. Gauge \\T\\ site: 18 G RAC. Flushed right antecubital with 5 ml normal saline. 14:39 XRAY Chest (1 view) In Process Unspecified. EDMS 15:24 CT Abd/Pelvis - IV Contrast Only In Process Unspecified. EDMS 16:26 Urinalysis w/ reflexes Sent. ph 16:30 John Allen MD is Referral Physician. trevor 17:19 No provider procedures requiring assistance completed. IV discontinued, intact, ph bleeding controlled, No redness/swelling at site. Pressure dressing applied. 17:20 Provided Education on: Medication uses and side effects, importance of drinking plenty ph of fluids. Administered Medications: 14:34 Drug: NS 0.9% IV 1000 ml Route: IV; Rate: 1 bolus; Site: right antecubital; vg1 17:18 Follow up: Response: No adverse reaction; IV Status: Completed infusion ph 17:18 Drug: Lactulose PO 30 grams Volume: 45 ml; Route: PO; 17:18 Follow up: Response: No adverse reaction; Medication administered at discharge. Medication: 14:15 VIS not applicable for this client. vg1 Outcome: 16:31 Discharge ordered by . [facility] 17:19 Discharged to home ambulatory, with family. 17:19 Condition: good 17:19 Discharge instructions given to patient, Instructed on discharge instructions, follow up and referral plans. medication usage, Demonstrated understanding of instructions, follow-up care, medications, Prescriptions given X 1. 17:20 Patient left the ED. NIH Stroke Scale - NIH Stroke Score Date: 08/22/2022 Time: 16:18 Total Score = 0 10. Dysarthria (speech clarity - read or repeat words) - 0(Normal) 11. Extinction and Inattention (visual/tactile/auditory/spatial/personal) - 0(No abnormality) 1a. Level of Consciousness (LOC) - 0(Alert) 1b. Level of Consciousness (LOC) (Month \\T\\ Age) - 0(Both) 1c. LOC Commands (Open \\T\\ Closes Eyes/Winter Intern) - 0(Both) 2. Best Gaze (Lateral Gaze Paresis) - 0(Normal) 3. Visual Field Loss - 0(No visual loss) 4. Facial Palsy - 0(Normal) 5a. Left Arm: Motor (10-second hold) - 0(No drift) 5b. Right Arm: Motor (10-second hold) - 0(No drift) 6a. Left Leg: Motor (5-second hold - always test supine) - 0(No drift) 6b. Right Leg: Motor (5-second hold - always test supine) - 0(No drift) 7. Limb Ataxia (finger/nose \\T\\ heel/cali - test with eyes open) - 0(Absent) 8. Sensory Loss (pinprick arms/legs/face) - 0(Normal) 9. Best Language: Aphasia (description/naming/reading) - 0(No aphasia) Initials: trevor Signatures: Dispatcher [employer] Drake Rich MD MD cha Hall, Patricia, RN RN ph Gemma Mcintosh, RN RN jl7 Jenny Vasquez RN RN vg1
--- NOTE | 2022-08-22 16:32 | EDPHYS ---
Physician Documentation [facility] Name: Roger Meza Age: 51 yrs Sex: Male : 1970 Arrival Date: 08/22/2022 Time: 01:50 Bed 7 Private MD: ED Physician Drake Nielsen HPI: 08/22 16:17 This 51 yrs old Male presents to ER via EMS with complaints of Syncope, Abd trevor Pain > 50 y/o. 16:17 The patient has experienced near-syncope, almost passed out, felt dizzy, felt faint. trevor Onset: The symptoms/episode began/occurred just prior to arrival. 16:18 The patient presents with abdominal pain in the left upper quadrant. Duration: This was trevor a single episode, that lasted 30 second(s). Context: occurred at home, outdoors. The symptoms do not radiate. The symptoms are described as crampy, sharp. Modifying factors: The symptoms are alleviated by nothing, the symptoms are aggravated by nothing. Associated injury: The patient did not suffer any apparent associated injury. Associated signs and symptoms: Pertinent positives: dizziness, weakness. Current symptoms: Currently, the patient is not experiencing any symptoms, the patient feels back to baseline. Severity of pain: At its worst the pain was moderate severe in the emergency department the pain has resolved and did so just prior to arrival. The patient has not experienced similar symptoms in the past. Historical: - Allergies: 14:17 NKA; jl7 - Home Meds: 14:17 lisinopril 10 mg Oral tab 1 tab once daily [Active]; jl7 - PMHx: 14:17 Hypertension; jl7 - Immunization history:: Adult Immunizations unknown. - Social history:: Smoking status: Patient reports the use of cigarette tobacco products, smokes 1.5 packs per day, Patient uses alcohol, on a daily basis. claims drinking about a 6 pack/day. - Family history:: not pertinent. ROS: 16:18 Constitutional: Negative for fever, chills, and weight loss, Eyes: Negative for injury, trevor pain, redness, and discharge, ENT: Negative for injury, pain, and discharge, Neck: Negative for injury, pain, and swelling, Cardiovascular: Negative for chest pain, palpitations, and edema, Respiratory: Negative for shortness of breath, cough, wheezing, and pleuritic chest pain, Back: Negative for injury and pain, : Negative for injury, bleeding, discharge, and swelling, MS/Extremity: Negative for injury and deformity, Skin: Negative for injury, rash, and discoloration, Neuro: Negative for headache, weakness, numbness, tingling, and seizure, Psych: Negative for depression, anxiety, suicide ideation, homicidal ideation, and hallucinations, Allergy/Immunology: Negative for hives, rash, and allergies, Endocrine: Negative for neck swelling, polydipsia, polyuria, polyphagia, and marked weight changes, Hematologic/Lymphatic: Negative for swollen nodes, abnormal bleeding, and unusual bruising. 16:18 Abdomen/GI: Positive for abdominal pain, of the left upper quadrant, right direct direct inguinal hernia, reducable. Exam: 16:18 Constitutional: This is a well developed, well nourished patient who is awake, alert, trevor and in no acute distress. Head/Face: Normocephalic, atraumatic. Eyes: Pupils equal round and reactive to light, extra-ocular motions intact. Lids and lashes normal. Conjunctiva and sclera are non-icteric and not injected. Cornea within normal limits. Periorbital areas with no swelling, redness, or edema. ENT: Nares patent. No nasal discharge, no septal abnormalities noted. Tympanic membranes are normal and external auditory canals are clear. Oropharynx with no redness, swelling, or masses, exudates, or evidence of obstruction, uvula midline. Mucous membranes moist. Neck: Trachea midline, no thyromegaly or masses palpated, and no cervical lymphadenopathy. Supple, full range of motion without nuchal rigidity, or vertebral point tenderness. No Meningismus. Chest/axilla: Normal chest wall appearance and motion. Nontender with no deformity. No lesions are appreciated. Cardiovascular: Regular rate and rhythm with a normal S1 and S2. No gallops, murmurs, or rubs. Normal PMI, no JVD. No pulse deficits. Respiratory: Lungs have equal breath sounds bilaterally, clear to auscultation and percussion. No rales, rhonchi or wheezes noted. No increased work of breathing, no retractions or nasal flaring. Abdomen/GI: Soft, non-tender, with normal bowel sounds. No distension or tympany. No guarding or rebound. No evidence of tenderness throughout. Back: No spinal tenderness. No costovertebral tenderness. Full range of motion. Male : Normal genitalia with no discharge or lesions. Skin: Warm, dry with normal turgor. Normal color with no rashes, no lesions, and no evidence of cellulitis. MS/ Extremity: Pulses equal, no cyanosis. Neurovascular intact. Full, normal range of motion. Neuro: Awake and alert, GCS 15, oriented to person, place, time, and situation. Cranial nerves II-XII grossly intact. Motor strength 5/5 in all extremities. Sensory grossly intact. Cerebellar exam normal. Normal gait. Psych: Awake, alert, with orientation to person, place and time. Behavior, mood, and affect are within normal limits. 16:18 ECG was reviewed by the Attending Physician. 16:18 Abdomen/GI: Palpation: abdomen is soft and non-tender, in all quadrants, Liver: no appreciated palpable abnormalities, Hernia: noted in the right inguinal area, incarceration, is not appreciated, tenderness. 16:18 Musculoskeletal/extremity: DVT Exam: No signs of deep vein thrombosis. no pain, no swelling, no tenderness, negative Homans' sign noted on exam, no appreciated bluish discoloration, no erythema, no increased warmth. Vital Signs: 14:14 BP 162 / 91; Pulse 66; Resp 15; Temp 97.7; Pulse Ox 99% ; Weight 77.11 kg; Height 5 ft. jl7 11 in. ; Pain 10/10; 14:15 BP 162 / 90; Pulse 70; Resp 16; Pulse Ox 99% on R/A; vg1 15:30 BP 155 / 78; Pulse 68; Resp 18; Temp 97.2; Pulse Ox 98% on R/A; ph 15:30 BP 141 / 89; Pulse 71; Resp 18; Temp 97.9; Pulse Ox 99% on R/A; ph 14:14 Body Mass Index 23.71 (77.11 kg, 180.34 cm) jl7 14:14 Pain Scale: Adult jl7 NIH Stroke Scale Scores: 16:18 NIHSS Score: 0 trevor [place] Coma Score: 16:18 Eye Response: spontaneous(4). Motor Response: obeys commands(6). Verbal Response: trevor oriented(5). Total: 15. MDM: 14:04 Patient medically screened. trevor 16:23 Differential diagnosis: bowel obstruction, coronary artery disease, Cholelithiasis, trevor diverticulitis, Mesenteric ischemia or infarction, non-specific abd pain, pancreatitis, Peptic Ulcer Disease, Peritonitis, Pyelonephritis, Ureterolithiasis, urinary tract infection. Data reviewed: vital signs, nurses notes, lab test result(s), EKG, radiologic studies, CT scan, plain films. Consideration of Admission/Observation Escalation of care including admission/observation considered. I considered the following discharge prescriptions or medication management in the emergency department Medications were administered in the Emergency Department. See MAR. Test considered but Not performed: Ultrasound no abd usg. Historians other than the Patient: Spouse/Significant Other: . Care significantly affected by the following chronic conditions: Hypertension. Counseling: I had a detailed discussion with the patient and/or guardian regarding: the historical points, exam findings, and any diagnostic results supporting the discharge/admit diagnosis, the presence of at least one elevated blood pressure reading (>120/80) during this emergency department visit, lab results, radiology results, the need for outpatient follow up, for definitive care, a family practitioner, a general surgeon, a non destructive tester. 08/22 14:05 Order name: Basic Metabolic Panel; Complete Time: 15:01 08/22 14:05 Order name: CBC with Diff; Complete Time: 15:01 08/22 14:05 Order name: LFT's; Complete Time: 15:01 08/22 14:05 Order name: Magnesium; Complete Time: 15:01 08/22 14:05 Order name: NT PRO-BNP; Complete Time: 15:01 08/22 14:05 Order name: PT-INR; Complete Time: 15:01 08/22 14:05 Order name: Troponin HS; Complete Time: 15:01 08/22 14:05 Order name: Lipase; Complete Time: 15:01 08/22 14:05 Order name: Urinalysis w/ reflexes; Complete Time: 16:34 08/22 14:05 Order name: CPK; Complete Time: 15:01 08/22 14:05 Order name: XRAY Chest (1 view); Complete Time: 15:01 08/22 15:03 Order name: CT Abd/Pelvis - IV Contrast Only; Complete Time: 16:04 08/22 14:05 Order name: EKG; Complete Time: 14:14 15 14:05 Order name: Cardiac monitoring; Complete Time: 14:34 [facility] 08/22 14:05 Order name: EKG - Nurse/Tech; Complete Time: [facility] 08/22 14:05 Order name: IV Saline Lock; Complete Time: [facility] 08/22 14:05 Order name: Labs collected and sent; Complete Time: [facility] 08/22 14:05 Order name: O2 Per Protocol; Complete Time: 14: [facility] 08/22 14:05 Order name: O2 Sat Monitoring; Complete Time: 14:12 [facility] EC:18 Rate is 64 beats/min. Rhythm is regular. QRS [place] is Normal. IN interval is normal. QRS trevor interval is normal. QT interval is normal. No Q waves. T waves are Normal. No ST changes noted. Clinical impression: Normal ECG and No evidence of ischemia. Interpreted by me. Reviewed by me. Administered Medications: Drug: NS 0.9% IV 1000 ml Route: IV; Rate: 1 bolus; Site: right antecubital; vg1 17:18 Follow up: Response: No adverse reaction; IV Status: Completed infusion ph 17:18 Drug: Lactulose PO 30 grams Volume: 45 ml; Route: PO; ph 17:18 Follow up: Response: No adverse reaction; Medication administered at discharge. ph Disposition Summary: 08/22/22 16:31 Discharge Ordered Location: Home trevor Problem: new trevor Symptoms: have improved trevor Condition: Stable trevor Diagnosis - Epigastric abdominal tenderness trevor - Tobacco abuse counseling trevor - Tobacco use trevor - Constipation trevor - Unilateral inguinal hernia, without obstruction or gangrene - right direct trevor - Syncope Near trevor Followup: trevor - With: Private Physician - When: 2 - 3 days - Reason: Recheck today's complaints, Continuance of care, Re-evaluation by your physician Followup: trevor - With: John Allen MD - When: 2 - 3 days - Reason: Recheck today's complaints, Re-evaluation by your physician Discharge Instructions: - Discharge Summary Sheet trevor - Abdominal Pain, Adult trevor - Constipation, Adult trevor - Steps to Quit Smoking trevor - Health Risks of Smoking trevor - Constipation, Adult, [id number] trevor - Near-Syncope, Ixay-ix-Yfhj trevor - Abdominal Pain, Adult, Emqc-jt-[id number] trevor - Steps to Quit Smoking, [id number]-[id number] trevor - Weakness, Xikj-[id number]-Afaa trevor Forms: - Medication Reconciliation Form trevor - Thank You Letter trevor - Antibiotic Education trevor - Prescription Opioid Use trevor - Patient Portal Instructions [facility] Prescriptions: - Lactulose 10 gram/15 mL Oral Solution - take 30 milliliters by ORAL route once daily; 300 milliliter; Refills: 0, trevor Product Selection Permitted NIH Stroke Scale - NIH Stroke Score Date: 08/22/2022 Time: 16:18 Total Score = 0 10. Dysarthria (speech clarity - read or repeat words) - 0(Normal) 11. Extinction and Inattention (visual/tactile/auditory/spatial/personal) - 0(No abnormality) 1a. Level of Consciousness (LOC) - 0(Alert) 1b. Level of Consciousness (LOC) (Month \T\ Age) - 0(Both) 1c. LOC Commands (Open \T\ Closes Eyes/Flyer Builder) - 0(Both) 2. Best Gaze (Lateral Gaze Paresis) - 0(Normal) 3. Visual Field Loss - 0(No visual loss) 4. Facial Palsy - 0(Normal) 5a. Left Arm: Motor (10-second hold) - 0(No drift) 5b. Right Arm: Motor (10-second hold) - 0(No drift) 6a. Left Leg: Motor (5-second hold - always test supine) - 0(No drift) 6b. Right Leg: Motor (5-second hold - always test supine) - 0(No drift) 7. Limb Ataxia (finger/nose \T\ heel/cali - test with eyes open) - 0(Absent) 8. Sensory Loss (pinprick arms/legs/face) - 0(Normal) 9. Best Language: Aphasia (description/naming/reading) - 0(No aphasia) Initials: [facility] Signatures: Dispatcher [employer] EDMS Drake Nielsen MD MD cha Hall, Patricia RN RN Gemma Rod, RN RN jl7 Jenny Vasquez RN RN vg1 Corrections: (The following items were deleted from the chart) 15:19 14:14 Head Brain Wo [id number].[email or web address] ordered. EDMS EDMS
[2022-08-22] MEDS ORDERED: LACTULOSE 20 GM/30 ML UCUP ONE (17:22)
[2022-08-22 18:01] VITALS: O2SAT 99
[2022-08-22 18:05] VITALS: BP 141/89; TEMP 97.9
--- NOTE | 2022-08-24 11:47 | EKG ---
Test Date: 2022-08-22 Test Time: 14:21:24 Manager Etl: ALEKSANDRA MEASUREMENT RESULTS: Intervals: Rate: 64 LA: 146 QRSD: 82 QT: 414 QTc: 427 [place]: P: 75 LA: 146 QRS: 69 T: 73 INTERPRETIVE STATEMENTS: Normal sinus rhythm Normal ECG Compared to ECG 05/05/2020 19:05:27 Sinus arrhythmia no longer present Myocardial infarct finding no longer present Electronically Signed On 08-24-22 11:44:57 CDT by Dagoberto Sebastian
== END 2022-08-22 17:20 | disposition home or self-care (01) ==
LOC: ER 13:50
DX: K59.00 Constipation, unspecified (principal); K40.90 Unilateral inguinal hernia, without obstruction or gangrene, not specified as recurrent; R55 Syncope and collapse; Z72.0 Tobacco use; Z71.6 Tobacco abuse counseling; I10 Essential (primary) hypertension
CPT/HCPCS: 96361; 93005; 85025; 80048; 36415; 83735; 82550; 85610; 80076; 81003; 84484; 83690; 83880; 74177; 71045; 96360; 99285; Q9967; J7030

== ENCOUNTER 2024-05-03 18:08 | Emergency (ER) | payer BC ==
[2024-05-03 19:00] LABS: Absolute Basophils 0.1 K/uL (0-0.5); Absolute Eosinophils 0.4 K/uL (0-0.5); Absolute Lymphocytes (CBC) 2.4 K/uL (0.7-4.9); Absolute Monocytes 0.7 K/uL (0.1-1.3); Eosinophils % 3.3 % (0-4.4); Hematocrit 48.6 % (39.6-49.0); Hemoglobin 16.1 g/dL (13.6-17.9); Lymphocytes % 20.9 % (15.3-44.8); MCH 32.2 pg (27.0-35.0); MCHC 33.1 g/dL (32.0-36.0); MCV 97.4 fL (80-100); MPV 7.7 fL (7.6-11.3); Monocytes % 6.2 % (3.3-12.3); Neutrophils % 68.6 % (41.7-73.7); Nucleated Red Blood Cells % 0.1 % (0-0); Platelets 245 thou/uL (152-406); RBC Red Blood Cell Count 4.99 M/uL (4.33-5.43); Red Cell Distribution Width 13.3 % (12.1-15.2)
[2024-05-03 19:13] LABS: Albumin 3.7 g/dL (3.4-5.0); Albumin/Globulin Ratio 0.9 (1.1-1.8); Anion Gap 11.7 mEq/L (5.0-15.0); Bilirubin Total 0.6 mg/dL (0.2-1.0); Potassium 3.7 mEq/L (3.5-5.1); Protein, Total 7.7 g/dL (6.4-8.2)
[2024-05-03] MEDS ORDERED: ONDANSETRON 4 MG/2 ML VIAL ONE (19:42)
[2024-05-03] MEDS ORDERED: KETOROLAC 30 MG/ML INJ ONE (19:42)
[2024-05-03] MEDS ORDERED: MORPHINE 4 MG/ML SYR ONE (19:43)
[2024-05-03] MEDS ORDERED: NA CHLORIDE 0.9% 1,000 ML ONE (19:43)
--- NOTE | 2024-05-03 20:06 | RAD REPORT ---
EXAMINATION: CT ABDOMEN AND PELVIS WITH CONTRAST CLINICAL INDICATION: Abdominal pain TECHNIQUE: CT abdomen and pelvis was performed, after the administration of 100 cc Isovue-300.. Sagit ata and coronal reconstructions were obtained. One or more of the following dose reduction techniques were used: Automated exposure control, adjustment of the mA and kV according to patient si ze, and iterative reconstruction. Unless otherwise specified, incidental findings do not require dedicated imaging follow-up. [id number]. Oral contrast was not given which limits evaluation of bowel and appendix. COMPARISON: .None FINDINGS: Liver, spleen, pancreas, adrenals and kidneys appear unremarkable A loop of ileum enters a large right inguinal hernia. Moderate dilatation of the is present within th e hernia. More proximal ileum is dilated as it enters the hernia. Right hydroceles present. No free air : IMPRESSION: Large right inguinal hernia contains an unobstructed loop of ileum.
--- NOTE | 2024-05-03 20:16 | ER ---
Nurse's Notes [facility] Name: Roger Meza Age: 53 yrs Sex: Male : 1970 Arrival Date: 05/03/2024 Time: 18:08 Bed 7 Private MD: Diagnosis: Unilateral inguinal hernia, without obstruction or gangrene Presentation: 05/03 18:29 Chief complaint: Patient states: hernia for 2 years, today there is a lot of pain in iw right groin area, it normally will go back to normal when I lay down but today it is not. Coronavirus screen: At this time, the client does not indicate any symptoms associated with coronavirus-19. Ebola Screen: No symptoms or risks identified at this time. Initial Sepsis Screen: Does the patient meet any 2 criteria? No. Patient's initial sepsis screen is negative. Does the patient have a suspected source of infection? No. Patient's initial sepsis screen is negative. Risk Assessment: Do you want to hurt yourself or someone else? Patient reports no desire to harm self or others. Onset of symptoms was May 03, 2024. 18:29 Method Of Arrival: Ambulatory iw 18:29 Acuity: ANDERSON 3 iw Historical: - Allergies: 18:31 NKA; iw - PMHx: 18:31 Hypertension; hernia; iw - PSHx: 18:32 Carotid endarterectomy; iw - Immunization history:: Adult Immunizations not up to date. - Infectious Disease History:: Denies. - Social history:: Smoking status: Patient reports the use of cigarette tobacco products, smokes one pack cigarettes per day. Screenin:56 [facility] ED Fall Risk Assessment (Adult) History of falling in the last 3 months, cp4 including since admission No falls in past 3 months (0 pts) Confusion or Disorientation No (0 pts) Intoxicated or Sedated No (0 pts) Impaired Gait No (0 pts) Mobility Assist Device Used No (0 pt) Altered Elimination No (0 pt) Score/Fall Risk Level 0 - 2 = Low Risk Oriented to surroundings, Maintained a safe environment, Assessed \T\ reinforced patient's understanding of fall precautions, Hourly rounding (assess needs \T\ fall precautionary measures) done. Abuse screen: Denies threats or abuse. Denies injuries from another. Nutritional screening: No deficits noted. Tuberculosis screening: No symptoms or risk factors identified. Assessment: 19:56 General: Appears in no apparent distress. uncomfortable, Behavior is calm, cooperative, cp4 appropriate for age. 19:56 Pain: Complains of pain in pelvis Pain does not radiate. Pain currently is 10 out of 10 cp4 on a pain scale. Pain began years ago. Neuro: Level of Consciousness is awake, alert, obeys commands, Oriented to person, place, time, situation. Cardiovascular: Patient's skin is warm and dry. Respiratory: Airway is patent Respiratory effort is even, unlabored. GI: Abdomen is round non-distended, Bowel sounds present X 4 quads. Abd is soft and non tender X 4 quads. : No signs and/or symptoms were reported regarding the genitourinary system. EENT: No signs and/or symptoms were reported regarding the EENT system. Derm: No signs and/or symptoms reported regarding the dermatologic system. Musculoskeletal: No signs and/or symptoms reported regarding the musculoskeletal system. Vital Signs: 18:29 BP 207 / 122; Pulse 64; Resp 16; Temp 98.4; Pulse Ox 100% ; Weight 72.57 kg; Height 5 iw ft. 11 in. ; Pain 10/10; 20:01 BP 196 / 114; Pulse 62; Resp 16; Pulse Ox 99% ; cp4 18:29 Body Mass Index 22.31 (72.57 kg, 180.34 cm) iw 18:29 Pain Scale: Adult iw ED Course: 18:13 Patient arrived in ED. gm2 18:18 Tan Ding MD is Attending Physician. ec2 18:31 Triage completed. iw 18:33 Arm band placed on. iw 18:40 Radiology exam delayed due to lab results not completed at this time. (BUN/Creatinine) nj IV insertion attempt and/or patient not having appropriate IV at this time. 18:52 CBC with Diff Sent. bc6 18:52 CMP Sent. bc6 18:52 Lipase Sent. bc6 18:52 Initial lab(s) drawn, by me, sent to lab. Inserted saline lock: 20 gauge in right bc6 antecubital area, using aseptic technique. Blood collected. Flushed with 10 mL NS. 19:50 CT Abd/Pelvis - IV Contrast Only In Process Unspecified. EDMS 19:56 Alem Anderson is Primary Nurse. cp4 19:56 Bed in low position. Call light in reach. Side rails up X 1. cp4 19:56 No provider procedures requiring assistance completed. cp4 20:15 Tan Ding MD is Referral Physician. ec2 20:15 Referral Physician role handed off by Tan Ding MD ec2 20:16 Ben Celestin MD is Referral Physician. ec2 20:56 Provided Education on: inguinal hernia. cp4 20:56 intact, bleeding controlled, No redness/swelling at site. Pressure dressing applied. cp4 Administered Medications: 19:58 Drug: TORadol - Ketorolac IVP 15 mg IVP once Route: IVP; Site: right antecubital; cp4 20:20 Follow up: Response: No adverse reaction cp4 19:58 Drug: Ondansetron IVP 4 mg IVP once; over 2 minutes Route: IVP; Site: right antecubital;cp4 20:20 Follow up: Response: No adverse reaction cp4 19:58 Drug: morphine IVP or IV 4 mg IVP once over 4 mins Route: IVP; Infused Over: 4 mins; cp4 Site: right antecubital; 20:20 Follow up: Response: No adverse reaction; Pain is decreased cp4 19:58 Drug: NS 0.9% IV 1000 ml IV at 1 bolus Per protocol; to be given as a bolus over 60 cp4 minutes Route: IV; Rate: 1 bolus; Site: right antecubital; 20:20 Follow up: Response: No adverse reaction; IV Status: Completed infusion cp4 Medication: 19:56 VIS not applicable for this client. cp4 Outcome: 20:16 Discharge ordered by . ec2 20:56 Discharged to home ambulatory, cp4 20:56 Condition: stable 20:56 Discharge instructions given to patient, family, Instructed on discharge instructions, follow up and referral plans. Demonstrated understanding of instructions, follow-up care, 21:14 Patient left the ED. cp4 Signatures: Dispatcher [employer] Rajni Mackenzie RN RN iw Jordan, Nathan nj [place]son, Breana bc6 Tan Ding MD MD ec2 Alem Anderson cp4 Angie Jeffrey 2 Corrections: (The following items were deleted from the chart) 18:32 18:29 Pulse 64bpm; Resp 16bpm; Pulse Ox 100%; Temp 98.4F; 72.57 kg; Height 5 ft. 11 iw in.; BMI: 22.3; Pain 10, Adult; iw
--- NOTE | 2024-05-03 20:16 | EDPHYS ---
Physician Documentation [facility] Name: Roger Meza Age: 53 yrs Sex: Male : 1970 Arrival Date: 05/03/2024 Time: 18:08 Bed 7 Private MD: ED Physician Tan Ding HPI: 05/03 18:39 This 53 yrs old Male presents to ER via Ambulatory with complaints of ec2 Decreased Appetite, Nausea, Groin Pain, Urinary Retention. 18:39 Patient arrives today for evaluation of right abdominal groin pain. Patient reports ec2 that he has a history of a right inguinal hernia, reports she feels that his typical bulge is persistent. Reports generalized abdominal pain as well. No fevers, no diarrhea, does report nausea, denies any vomiting. Reports last bowel movement was this a.m.. Historical: - Allergies: 18:31 NKA; iw - PMHx: 18:31 Hypertension; hernia; iw - PSHx: 18:32 Carotid endarterectomy; iw - Immunization history:: Adult Immunizations not up to date. - Infectious Disease History:: Denies. - Social history:: Smoking status: Patient reports the use of cigarette tobacco products, smokes one pack cigarettes per day. ROS: 18:40 Constitutional: as per hpi ec2 Exam: 18:40 Constitutional: GEN: NAD Head: atraumatic Eyes: EOMI Ears: External ears are ec2 normal. CV: regular rate LUNGS: no respiratory distress ABD: non-distended, soft, generally tender, no guarding or rigid SKIN: no evidence of rashes MSK: no evidence of trauma Vital Signs: 18:29 BP 207 / 122; Pulse 64; Resp 16; Temp 98.4; Pulse Ox 100% ; Weight 72.57 kg; Height 5 iw ft. 11 in. ; Pain 10/10; 20:01 BP 196 / 114; Pulse 62; Resp 16; Pulse Ox 99% ; cp4 18:29 Body Mass Index 22.31 (72.57 kg, 180.34 cm) iw 18:29 Pain Scale: Adult iw MDM: 18:39 Medical Screening Exam initiated ec2 18:40 Data reviewed: vital signs, nurses notes. ED course: Patient arrives today for ec2 evaluation of abdominal pain and groin pain. Examination yields abdominal findings above. Will obtain lab work, CT imaging. DDx include processes such as hernia incarceration, strangulation, generalized abdominal pain. 19:41 ED course: Examination of the area shows a large scrotal inguinal hernia, reduces ec2 with direct pressure. Will obtain CT scan given the elevated lipase.. 20:15 ED course: CT scan shows unobstructed inguinal hernia. Easily reducible. Will discharge ec2 home. Instructed to follow-up with general surgery. Return precautions given.. 05/03 18:38 Order name: CBC with Diff; Complete Time: 19:20 ec2 05/03 18:38 Order name: CMP; Complete Time: 19:20 ec2 05/03 18:38 Order name: Lipase; Complete Time: 19:20 ec2 05/03 18:38 Order name: CT Abd/Pelvis - IV Contrast Only; Complete Time: 20:15 ec2 05/03 18:38 Order name: IV Saline Lock; Complete Time: 18:52 ec2 05/03 18:38 Order name: Labs collected and sent; Complete Time: 18:52 ec2 Administered Medications: 19:58 Drug: TORadol - Ketorolac IVP 15 mg IVP once Route: IVP; Site: right antecubital; cp4 20:20 Follow up: Response: No adverse reaction cp4 19:58 Drug: Ondansetron IVP 4 mg IVP once; over 2 minutes Route: IVP; Site: right antecubital;cp4 20:20 Follow up: Response: No adverse reaction cp4 19:58 Drug: morphine IVP or IV 4 mg IVP once over 4 mins Route: IVP; Infused Over: 4 mins; cp4 Site: right antecubital; 20:20 Follow up: Response: No adverse reaction; Pain is decreased cp4 19:58 Drug: NS 0.9% IV 1000 ml IV at 1 bolus Per protocol; to be given as a bolus over 60 cp4 minutes Route: IV; Rate: 1 bolus; Site: right antecubital; 20:20 Follow up: Response: No adverse reaction; IV Status: Completed infusion cp4 Disposition Summary: 05/03/24 20:16 Discharge Ordered Notes: Location: Home ec2 Condition: Stable ec2 Diagnosis - Unilateral inguinal hernia, without obstruction or gangrene ec2 Followup: ec2 - With: Ben Celestin MD - When: - Reason: Recheck today's complaints Discharge Instructions: - Discharge Summary Sheet ec2 - Inguinal Hernia, Adult, [id number] ec2 Forms: - Medication Reconciliation Form ec2 - Antibiotic Education ec2 - Prescription Opioid Use ec2 - Patient Portal Instructions ec2 - Leadership Thank You Letter ec2 Signatures: Dispatcher [employer] Rajni Mackenzie, VITOR RN iw Tan Ding MD MD ec2 Alem Anderson cp4 Corrections: (The following items were deleted from the chart) 18:38 18:38 CBC+H.LAB.BRZ ordered. EDMS EDMS 18:38 18:38 COMPREHENSIVE METABOLIC PANEL+C.LAB.BRZ ordered. EDMS EDMS 18:38 18:38 LIPASE+C.LAB.BRZ ordered. EDMS EDMS 18:39 18:39 Abdomen Pelvis W Con+CT.RAD.BRZ ordered. EDMS EDMS
[2024-05-03 22:32] VITALS: TEMP 98.4
[2024-05-03 22:34] VITALS: BP 196/114; O2SAT 99
== END 2024-05-03 21:14 | disposition home or self-care (01) ==
LOC: ER 18:08
DX: K40.90 Unilateral inguinal hernia, without obstruction or gangrene, not specified as recurrent (principal); F17.210 Nicotine dependence, cigarettes, uncomplicated
CPT/HCPCS: 85025; 36415; 83690; 80053; 74177; Q9967; J2405; J7030